=== PATIENT | female | born 1990 | race Caucasian/White ===

== ENCOUNTER 2017-03-14 20:57 | Emergency (ER) | payer SELFPAY ==
[2017-03-14 21:03] VITALS: BP 124/84
[2017-03-14] MEDS ORDERED: Benzonatate CAP* 100 MG PO ONE (21:20)
--- NOTE | 2017-03-14 21:31 | UC ---
Respiratory Complaint HPI - HPI Summary HPI Summary: Pt presents with c/o nasal congestion, cough, sore throat that has since resolved since onset, generalized malaise, and PND. - History of Current Complaint Chief Complaint: UCRespiratory Stated Complaint: SORE THROAT,COUGH Time Seen by Provider: 03/14/17 21:04 Hx Obtained From: Patient Hx Last Menstrual Period: unknown, on seasonique ?: No Onset/Duration: Gradual Onset, Lasting Weeks - 1, Still Present Timing: Constant Severity Initially: Mild Severity Currently: Mild Character: Cough: Nonproductive Aggravating Factors: Deep Breaths Alleviating Factors: Nothing Associated Signs And Symptoms: Positive: URI, Nasal Congestion Related History: Seasonal Allergies - unsure - Risk Factors Pulmonary Embolism Risk Factors: Oral Contraceptives Cardiac Risk Factors: Negative Pseudomonas Risk Factors: Negative Tuberculosis Risk Factors: Negative - Allergies/Home Medications Allergies/Adverse Reactions: Allergies Allergy/AdvReac Type Severity Reaction Status Date / Time No Known Allergies Allergy Verified 03/14/17 21:03 Home Medications: Home Medications Levonorgestrel-Ethinyl Estradi [Seasonique] 1 tab PO DAILY 03/14/17 [History Confirmed 03/14/17] PMH/Surg Hx/FS Hx/Imm Hx Previously Healthy: Yes - Surgical History Surgical History: Yes Surgery Procedure, Year, and Place: c-sections x 2 - Family History Known Family History: Positive: Cardiac Disease - Social History Occupation: Employed Full-time Lives: With Family Alcohol Use: None Substance Use Type: None Smoking Status (MU): Former Smoker Type: Cigarettes Amount Used/How Often: 10 per day Length of Time of Smoking/Using Tobacco: 12 years Have You Smoked in the Last Year: No When Did the Patient Quit Smoking/Using Tobacco: 11/10 Household Exposure Type: Cigarettes Review of Systems Constitutional: Negative Skin: Negative Eyes: Negative ENT: Sore Throat - resolved since onset, Other - nasal congestion Respiratory: Cough Cardiovascular: Negative Gastrointestinal: Negative Genitourinary: Negative Motor: Negative Neurovascular: Negative Musculoskeletal: Myalgia - generalized body aches Neurological: Negative Psychological: Negative All Other Systems Reviewed And Are Negative: Yes Physical Exam Triage Information Reviewed: Yes Appearance: Well-Appearing Vital Signs: Initial Vital Signs Temp 98.7 F 03/14/17 20:58 Pulse 77 03/14/17 20:58 Resp 15 03/14/17 20:58 BP 124/84 03/14/17 20:58 Pulse Ox 98 03/14/17 20:58 Eye Exam: Normal ENT Exam: Other ENT: Positive: Nasal congestion, TM bulging - bilatearl Dental Exam: Normal Neck exam: Normal Respiratory Exam: Normal Cardiovascular Exam: Normal Abdominal Exam: Normal Musculoskeletal Exam: Normal Neurological Exam: Normal Psychological Exam: Normal Skin Exam: Normal UC Diagnostic Evaluation - Laboratory O2 Sat by Pulse Oximetry: 98 Respiratory Course/Dx - Differential Dx/Diagnosis Differential Diagnosis/HQI/PQRI: Bronchitis, Other - cough, viral syndrome Provider Diagnoses: cough. viral syndrome Discharge - Discharge Plan Condition: Stable Disposition: HOME Prescriptions: Benzonatate CAP* [Tessalon 100 MG CAP*] 100 mg PO TID PRN #15 cap PRN Reason: Cough predniSONE TAB* [Deltasone TAB*] 20 mg PO DAILY #4 tab Patient Education Materials: Viral Syndrome (ED), Acute Cough (ED) Referrals: MACI Mcdonald [Primary Care Provider] -
== END 2017-03-14 21:29 | disposition home or self-care (01) ==
LOC: UCCORT 20:57
DX: B34.9 Viral infection, unspecified (principal); R05 Cough; Z87.891 Personal history of nicotine dependence
CPT/HCPCS: 99212; A9270-GY; G0463

== ENCOUNTER 2019-10-05 07:52 | Emergency (ER) | payer OTHER ==
[2019-10-05 08:07] VITALS: BP 126/74
--- NOTE | 2019-10-05 08:23 | UC ---
Respiratory Complaint HPI - HPI Summary HPI Summary: Pt Presents with c/o cough that began last week. Pt was diagnosed with flu last weeek states she is feeling better but still has cough and nasal congestion. Pt states that she "googled" her symptoms and she is "worried that she is sick" - History of Current Complaint Chief Complaint: UCRespiratory Stated Complaint: COLD SYMPTOMS (FLU DIAGNOSIS SUNDAY) Time Seen by Provider: 10/05/19 08:12 Hx Obtained From: Patient Hx Last Menstrual Period: July ?: No Onset/Duration: Gradual Onset, Lasting Days, Still Present Timing: Constant Severity Initially: Mild Severity Currently: Mild Pain Intensity: 0 Character: Cough: Nonproductive Aggravating Factors: Deep Breaths, Recumbent Position Alleviating Factors: Nothing Associated Signs And Symptoms: Positive: URI, Nasal Congestion - Risk Factors Pulmonary Embolism Risk Factors: Negative Cardiac Risk Factors: Negative Pseudomonas Risk Factors: Negative Tuberculosis Risk Factors: Negative - Allergies/Home Medications Allergies/Adverse Reactions: Allergies Allergy/AdvReac Type Severity Reaction Status Date / Time No Known Allergies Allergy Verified 10/05/19 08:04 PMH/Surg Hx/FS Hx/Imm Hx Previously Healthy: Yes Psychological History: Anxiety - Surgical History Surgical History: Yes Surgery Procedure, Year, and Place: c-sections x 2 - Family History Known Family History: Positive: Cardiac Disease - Social History Occupation: Employed Full-time Lives: With Family Alcohol Use: None Substance Use Type: None Smoking Status (MU): Former Smoker Type: Cigarettes Amount Used/How Often: 10 per day Length of Time of Smoking/Using Tobacco: 12 years Have You Smoked in the Last Year: No When Did the Patient Quit Smoking/Using Tobacco: 11/10 Household Exposure Type: Cigarettes - Immunization History Vaccination Up to Date: Yes Review of Systems All Other Systems Reviewed And Are Negative: Yes Constitutional: Positive: Negative Skin: Positive: Negative Eyes: Positive: Negative ENT: Positive: Nasal Discharge, Sinus Congestion Respiratory: Positive: Cough Cardiovascular: Positive: Negative Gastrointestinal: Positive: Negative Genitourinary: Positive: Negative Motor: Positive: Negative Neurovascular: Positive: Negative Musculoskeletal: Positive: Negative Neurological: Positive: Negative Psychological: Positive: Negative Is Patient Immunocompromised?: No Physical Exam Triage Information Reviewed: Yes Appearance: Well-Appearing Vital Signs: Initial Vital Signs Temp 97.8 F 10/05/19 08:04 Pulse 89 10/05/19 08:04 Resp 20 10/05/19 08:04 BP 126/74 10/05/19 08:04 Pulse Ox 100 10/05/19 08:04 Vital Signs Reviewed: Yes Eye Exam: Normal ENT: Positive: Nasal congestion Dental Exam: Normal Neck exam: Normal Respiratory Exam: Normal Respiratory: Positive: Normal breath sounds Cardiovascular Exam: Normal Musculoskeletal Exam: Normal Neurological Exam: Normal Psychological Exam: Normal Skin Exam: Normal Respiratory Course/Dx - Differential Dx/Diagnosis Differential Diagnosis/HQI/PQRI: Bronchitis, Exacerbation Of COPD, Sinusitis Provider Diagnosis: Post viral syndrome Discharge ED - Sign-Out/Discharge Documenting (check all that apply): Patient Departure All imaging exams completed and their final reports reviewed: No Studies - Discharge Plan Condition: Stable Disposition: HOME Prescriptions: Guaifenesin/Pseudoephedrne HCl [Mucinex D ER 600-60 mg Tablet] 1 each PO Q12H # 14 tab.er.12h predniSONE 10 mg TAB [Deltasone 10 MG TAB*] 30 mg PO DAILY #12 tab Patient Education Materials: Acute Cough (ED) Referrals: Lea Otero MD [Primary Care Provider] - If Needed - Billing Disposition and Condition Condition: STABLE Disposition: Home
== END 2019-10-05 08:38 | disposition home or self-care (01) ==
LOC: UCCORT 07:52
DX: R05 Cough (principal); R09.81 Nasal congestion; R09.89 Other specified symptoms and signs involving the circulatory and respiratory systems; R09.82 Postnasal drip; Z87.891 Personal history of nicotine dependence
CPT/HCPCS: 99212; G0463